=== PATIENT | male | born 1975 | race Native Hawaiian/Other Pacific Islander ===

== ENCOUNTER 2023-01-28 23:00 | Emergency (ER) | payer BC ==
[~2023-01-28] VITALS: Ht 175.3 cm; Wt 193.2 kg
[2023-01-29 00:18] LABS: POTASSIUM 3.8 mmol/L (3.6-5.2)
[2023-01-29 01:00] LABS: PLATELET COUNT 255 K/uL (142-355)
[2023-01-29 02:13] VITALS: BP 148/91; TEMP 98.9
== END 2023-01-29 02:13 | disposition home or self-care (01) ==
LOC: ED 23:00
PROVIDERS: Family Medicine
DX: I16.9 Hypertensive crisis, unspecified (principal); R60.9 Edema, unspecified
CPT/HCPCS: 36415; 80053; 81000; 81002; 82550; 83880; 84484; 85027; 96374; 96375; 99284; J0360; J1940